=== PATIENT | male | born 1940 | race African-American/Black ===

== ENCOUNTER 2018-03-04 12:00 | Inpatient (IN) | payer MEDICARE ==
[~2018-03-04] VITALS: Ht 182.9 cm; Wt 76.2 kg
[2018-03-04] MEDS ORDERED: AMLO2.5T45 PO (12:07)
[2018-03-04] MEDS ORDERED: ATOR10TA69 PO (12:07)
[2018-03-04] MEDS ORDERED: CLOP75TA33 PO (12:09)
[2018-03-04] MEDS ORDERED: CARV3.1242 PO (12:09)
[2018-03-04] MEDS ORDERED: FURO-152 PO (12:09)
[2018-03-04] MEDS ORDERED: SENN-169 PO (12:09)
[2018-03-04] MEDS ORDERED: CLON0.1T PO (12:09)
[2018-03-04 13:36] LABS: INR 1.2; PROTHROMBIN TIME 12.1 sec (9.4-11.6)
[2018-03-04 13:42] LABS: BASOPHILS % 0.4 % (0.0-2.0); EOSINOPHILS % 1.1 % (0.0-5.0); HEMATOCRIT. 31.2 % (42.0-52.0); HEMOGLOBIN. 10.8 g/dL (14.0-18.0); LYMPHOCYTES % 12.9 % (20.0-50.0); MEAN CORPUSCULAR HEMOGLOBIN 27.3 pg (28.0-32.0); MEAN CORPUSCULAR VOLUME 79.3 fL (80.0-94.0); MEAN PLATELET VOLUME 6.7 fl (7.4-10.4); MONOCYTES % 8.5 % (2.0-8.0); NEUTROPHILS % 77.1 % (40.0-76.0); PLATELET 264 x1000/uL (130-400); RED BLOOD CELL COUNT 3.94 mill/uL (4.7-6.1); RED CELL DISTRIBUTION WIDTH 15.2 % (11.6-14.6)
[2018-03-04 14:25] LABS: *AMPHETAMINES SCREEN URINE NEGATIVE (NEGATIVE); *BARBITURATES SCREEN URINE NEGATIVE (NEGATIVE); *BENZODIAZEPINES SCREEN URINE NEGATIVE (NEGATIVE); *COCAINE SCREEN URINE NEGATIVE (NEGATIVE); CANNABINOID URINE SCREEN NEGATIVE (NEGATIVE); METHADONE URINE SCREEN NEGATIVE (NEGATIVE); OPIATES URINE SCREEN NEGATIVE (NEGATIVE); PHENCYCLIDINE URINE SCREEN NEGATIVE (NEGATIVE)
[2018-03-04 17:20] VITALS: BP 146/87
[2018-03-04] MEDS ORDERED: HYDROCODONE/ACETAMINOPHEN 5/325MG TABLET PO PRN (18:30)
[2018-03-04] MEDS ORDERED: NA PHOS,M-B/NA PHOS,DI-BA ENEMA 118ML PR PRN (18:30)
[2018-03-04] MEDS ORDERED: ONDANSETRON HCL 4MG/2ML VIAL IV PRN (18:30)
[2018-03-04] MEDS ORDERED: ACETAMINOPHEN 325MG TABLET PO PRN (18:30)
[2018-03-04] MEDS ORDERED: MAGNESIUM/ALUMINUM HYDROXIDE/SIMETHICONE 30ML UDC PO PRN (18:30)
[2018-03-04] MEDS ORDERED: ACETAMINOPHEN 650MG/20.3ML UDC GT PRN (18:30)
[2018-03-04] MEDS ORDERED: HYDROCODONE/ACETAMINOPHEN 10/325MG TABLET PO PRN (18:30)
[2018-03-04] MEDS ORDERED: DOCUSATE SODIUM 100MG CAPSULE PO PRN (18:30)
[2018-03-04] MEDS ORDERED: IPRATROPIUM/ALBUTEROL 0.5-3(2.5)MG/3ML NEB INH PRN (18:30)
[2018-03-04] MEDS ORDERED: ACETAMINOPHEN 650MG SUPP PR PRN (18:30)
[2018-03-04] MEDS ORDERED: CLONIDINE 0.1MG TABLET PO PRN (18:30)
[2018-03-04] MEDS ORDERED: DIPHENHYDRAMINE 50MG/ML VIAL IV PRN (18:30)
[2018-03-04] MEDS ORDERED: GUAIFENESIN 200MG/10ML SUGAR FREE UDC PO PRN (18:30)
[2018-03-04] MEDS: SENNOSIDES 8.6MG TABLET PO SCH (19:00)
[2018-03-04 20:26] VITALS: BP 145/81
[2018-03-04] MEDS: CLOPIDOGREL 75MG TABLET PO SCH (21:17)
[2018-03-04] MEDS: CARVEDILOL 3.125 MG TABLET PO SCH (21:17)
[2018-03-04] MEDS: CLONIDINE 0.1MG TABLET PO SCH (21:17)
[2018-03-04] MEDS: ATORVASTATIN CALCIUM 10MG TABLET PO SCH (21:17)
[2018-03-04] MEDS: AMLODIPINE 2.5MG TABLET PO SCH (21:17)
[2018-03-04] MEDS: SODIUM CHLORIDE 0.9% INJ 3ML FLUSH IVF SCH (21:18)
[2018-03-04 23:47] LABS: CREATINE KINASE MB FRACTION 1.3 ng/mL (0.5-3.6)
[2018-03-05] VITALS (30 sets, daily range): BP systolic 120–212; BP diastolic 63–98
[2018-03-05] MEDS: IPRATROPIUM/ALBUTEROL 0.5-3(2.5)MG/3ML NEB INH SCH ×4 (02:51→21:20)
[2018-03-05 04:21] LABS: CLARITY URINE CLEAR (CLEAR); COLOR URINE YELLOW (YELLOW); KETONES URINE NEGATIVE (NEGATIVE); LEUKOCYTE ESTERASE URINE NEGATIVE (NEGATIVE); NITRITE URINE NEGATIVE (NEGATIVE); OCCULT BLOOD URINE NEGATIVE (NEGATIVE); PROTEIN URINE TRACE (NEGATIVE); SPECIFIC GRAVITY URINE 1.012 (1.005-1.030); UROBILINOGEN URINE 0.2 E.U./dL (0.2-1.0)
[2018-03-05 05:08] LABS: *AMPHETAMINES SCREEN URINE NEGATIVE (NEGATIVE); *BARBITURATES SCREEN URINE NEGATIVE (NEGATIVE); *BENZODIAZEPINES SCREEN URINE NEGATIVE (NEGATIVE); *COCAINE SCREEN URINE NEGATIVE (NEGATIVE); METHADONE URINE SCREEN NEGATIVE (NEGATIVE); OPIATES URINE SCREEN NEGATIVE (NEGATIVE)
[2018-03-05 05:09] LABS: CANNABINOID URINE SCREEN NEGATIVE (NEGATIVE); PHENCYCLIDINE URINE SCREEN NEGATIVE (NEGATIVE)
[2018-03-05] MEDS: SODIUM CHLORIDE 0.9% INJ 3ML FLUSH IVF SCH ×3 (06:21→21:12)
[2018-03-05] MEDS: CLONIDINE 0.1MG TABLET PO SCH ×3 (06:24→19:34)
[2018-03-05] MEDS: SENNOSIDES 8.6MG TABLET PO SCH ×2 (09:12→17:00)
[2018-03-05] MEDS: CARVEDILOL 3.125 MG TABLET PO SCH ×2 (09:12→17:46)
[2018-03-05] MEDS: AMLODIPINE 2.5MG TABLET PO SCH (09:12)
[2018-03-05] MEDS: CLOPIDOGREL 75MG TABLET PO SCH (09:13)
[2018-03-05 09:34] LABS: BASOPHILS % 0.4 % (0.0-2.0); EOSINOPHILS % 1.2 % (0.0-5.0); HEMATOCRIT. 28.8 % (42.0-52.0); HEMOGLOBIN. 9.5 g/dL (14.0-18.0); LYMPHOCYTES % 18.5 % (20.0-50.0); MEAN CORPUSCULAR HEMOGLOBIN 26.3 pg (28.0-32.0); MEAN CORPUSCULAR VOLUME 79.3 fL (80.0-94.0); MONOCYTES % 10.8 % (2.0-8.0); NEUTROPHILS % 69.1 % (40.0-76.0); PLATELET 234 x1000/uL (130-400); RED BLOOD CELL COUNT 3.63 mill/uL (4.7-6.1); RED CELL DISTRIBUTION WIDTH 15.3 % (11.6-14.6)
[2018-03-05 09:43] LABS: CHLORIDE 106 mEq/L (98-107)
[2018-03-05 09:55] LABS: CREATINE KINASE 48 IU/L (39-308); HDL CHOLESTEROL 38 mg/dL (40-59); LDL CHOLESTEROL 91 mg/dL (5-100)
[2018-03-05] MEDS ORDERED: ENOXAPARIN 30MG/0.3ML SYR SUBCUT SCH (11:00)
[2018-03-05 11:09] LABS: T4 FREE 1.13 ng/dL (0.76-1.46)
[2018-03-05] MEDS ORDERED: SODIUM CHLORIDE 0.9% 500 ML IV ONE (14:00)
[2018-03-05] MEDS ORDERED: IOHEXOL-350 100 ML BOTTLE ONE (16:44)
[2018-03-05] MEDS ORDERED: POTASSIUM CHLORIDE 20MEQ TABLET SR PO NR ×2 (17:30→21:30)
[2018-03-05 18:16] LABS: HEMATOCRIT 29.7 % (42.0-52.0); HEMOGLOBIN 9.8 g/dL (14.0-18.0)
[2018-03-05 18:31] LABS: CREATINE KINASE MB FRACTION 1.2 ng/mL (0.5-3.6)
[2018-03-05] MEDS: NICARDIPINE 100 MG in SODIUM CHLORIDE 0.9% 60 ML IV PRN (18:34)
[2018-03-05] MEDS: ATORVASTATIN CALCIUM 10MG TABLET PO SCH (21:11)
[2018-03-06] VITALS (78 sets, daily range): BP systolic 87–176; BP diastolic 48–106
[2018-03-06] MEDS: NICARDIPINE 100 MG in SODIUM CHLORIDE 0.9% 60 ML IV PRN (02:08)
[2018-03-06] MEDS: IPRATROPIUM/ALBUTEROL 0.5-3(2.5)MG/3ML NEB INH SCH ×4 (02:31→21:36)
[2018-03-06 03:11] LABS: CREATINE KINASE MB FRACTION 0.5 ng/mL (0.5-3.6)
[2018-03-06] MEDS: SODIUM CHLORIDE 0.9% INJ 3ML FLUSH IVF SCH ×3 (05:10→21:26)
[2018-03-06] MEDS: CLONIDINE 0.1MG TABLET PO SCH ×3 (05:49→21:26)
[2018-03-06] MEDS: CARVEDILOL 3.125 MG TABLET PO SCH ×2 (08:31→17:46)
[2018-03-06] MEDS: PANTOPRAZOLE SODIUM 40 MG/VIAL IV SCH (08:31)
[2018-03-06 09:34] LABS: BASOPHILS % 0.4 % (0.0-2.0); EOSINOPHILS % 1.5 % (0.0-5.0); HEMATOCRIT. 31.9 % (42.0-52.0); HEMOGLOBIN. 10.3 g/dL (14.0-18.0); LYMPHOCYTES % 16.1 % (20.0-50.0); MEAN CORPUSCULAR HEMOGLOBIN 26.1 pg (28.0-32.0); MEAN CORPUSCULAR VOLUME 80.6 fL (80.0-94.0); MEAN PLATELET VOLUME 6.8 fl (7.4-10.4); MONOCYTES % 11.5 % (2.0-8.0); NEUTROPHILS % 70.5 % (40.0-76.0); PLATELET 242 x1000/uL (130-400); RED BLOOD CELL COUNT 3.96 mill/uL (4.7-6.1); RED CELL DISTRIBUTION WIDTH 15.7 % (11.6-14.6)
[2018-03-06] MEDS: SENNOSIDES 8.6MG TABLET PO SCH ×2 (10:22→17:46)
[2018-03-06 10:37] LABS: CREATINE KINASE MB FRACTION 0.7 ng/mL (0.5-3.6)
[2018-03-06] MEDS ORDERED: AMLODIPINE 10MG TABLET PO NR (14:30)
[2018-03-06] MEDS: CLOPIDOGREL 75MG TABLET PO SCH (14:54)
[2018-03-06] MEDS: ATORVASTATIN CALCIUM 10MG TABLET PO SCH (21:26)
[2018-03-07] VITALS (17 sets, daily range): BP systolic 125–156; BP diastolic 72–92
[2018-03-07] MEDS: IPRATROPIUM/ALBUTEROL 0.5-3(2.5)MG/3ML NEB INH SCH ×3 (01:15→14:53)
[2018-03-07] MEDS: SODIUM CHLORIDE 0.9% INJ 3ML FLUSH IVF SCH ×2 (05:11→14:43)
[2018-03-07] MEDS: CLONIDINE 0.1MG TABLET PO SCH ×2 (05:11→14:47)
[2018-03-07 05:26] LABS: BASOPHILS % 0.4 % (0.0-2.0); HEMATOCRIT. 28.8 % (42.0-52.0); HEMOGLOBIN. 9.5 g/dL (14.0-18.0); LYMPHOCYTES % 21.2 % (20.0-50.0); MEAN CORPUSCULAR HEMOGLOBIN 26.3 pg (28.0-32.0); MEAN CORPUSCULAR VOLUME 79.6 fL (80.0-94.0); MEAN PLATELET VOLUME 6.8 fl (7.4-10.4); MONOCYTES % 13.1 % (2.0-8.0); NEUTROPHILS % 63.3 % (40.0-76.0); PLATELET 228 x1000/uL (130-400); RED BLOOD CELL COUNT 3.62 mill/uL (4.7-6.1); RED CELL DISTRIBUTION WIDTH 15.3 % (11.6-14.6)
[2018-03-07] MEDS: PANTOPRAZOLE SODIUM 40 MG/VIAL IV SCH (08:58)
[2018-03-07] MEDS: CLOPIDOGREL 75MG TABLET PO SCH (08:58)
[2018-03-07] MEDS: SENNOSIDES 8.6MG TABLET PO SCH (08:58)
[2018-03-07] MEDS: CARVEDILOL 3.125 MG TABLET PO SCH (08:59)
[2018-03-07] MEDS ORDERED: AMLODIPINE 10MG TABLET PO SCH ×2 (09:00→21:00)
[2018-03-07 13:10] LABS: *CREATININE RANDOM URINE 98.8 mg/dL (Not Estab.); MICROALBUMIN RANDOM URINE 104.9 ug/mL (Not Estab.)
[2018-03-07] MEDS ORDERED: CARVEDILOL 6.25 MG TABLET PO SCH (21:00)
== END 2018-03-07 17:20 | disposition home or self-care (01) | DRG 682 ==
LOC: ER 12:18 → 7WST 15:33 → ENRESERV 15:41 → CVICU 03-05 16:39
PROVIDERS: ADMIT Family Medicine; ATTEND Family Medicine
DX: N17.9 Acute kidney failure, unspecified (principal); I50.33 Acute on chronic diastolic (congestive) heart failure; I31.3 Pericardial effusion (noninflammatory); I13.0 Hypertensive heart and chronic kidney disease with heart failure and stage 1 through stage 4 chronic kidney disease, or unspecified chronic kidney disease; I42.9 Cardiomyopathy, unspecified; I74.10 Embolism and thrombosis of unspecified parts of aorta; R55 Syncope and collapse; D63.8 Anemia in other chronic diseases classified elsewhere; F03.90 Unspecified dementia, unspecified severity, without behavioral disturbance, psychotic disturbance, mood disturbance, and anxiety; E78.5 Hyperlipidemia, unspecified; N18.9 Chronic kidney disease, unspecified; R79.1 Abnormal coagulation profile; Z86.73 Personal history of transient ischemic attack (TIA), and cerebral infarction without residual deficits; Z79.02 Long term (current) use of antithrombotics/antiplatelets; Z79.899 Other long term (current) drug therapy; K57.30 Diverticulosis of large intestine without perforation or abscess without bleeding; N28.1 Cyst of kidney, acquired; K40.90 Unilateral inguinal hernia, without obstruction or gangrene, not specified as recurrent
CPT/HCPCS: 36415; 70450; 71045; 71275; 74174; 76770; 78582; 80048; 80053; 80061; 80305; 81003; 82043; 82550; 82553; 82570; 83036; 83735; 83880; 83935; 84100; 84156; 84300; 84439; 84443; 84484; 85014; 85018; 85025; 85379; 85610; 93005; 93306; 93880; 93970; 94640; 99285; A9558; C9113; J1650; J3490; J7040; J7050; J7620; Q9967